=== PATIENT | female | born 1980 | race Caucasian/White ===

== ENCOUNTER 2017-07-27 07:44 | Day surgery (SDC) | payer BC, MEDICAID, OTHER ==
[2017-07-27] MEDS ORDERED: Propofol 200 MG/20 ML SDV ONE ×2 (08:21→09:15)
[2017-07-27] MEDS ORDERED: fentaNYL 100 MCG/2 ML SDV ONE (08:21)
[2017-07-27] MEDS ORDERED: Midazolam 1 MG/ML 2 ML SDV ONE (08:22)
[2017-07-27] MEDS ORDERED: Lactated Ringers 1,000 ML IV SCH (08:45)
[2017-07-27 10:45] VITALS: BP 110/66
--- NOTE | 2017-07-27 11:29 | OR ---
DATE OF PROCEDURE: 07/27/2017 PREOPERATIVE DIAGNOSES: 1. Family history of colon cancer in grandfather. 2. Blood in stool. POSTOPERATIVE DIAGNOSES: 1. Unremarkable colonoscopy. 2. Family history of colon cancer in grandfather. 3. Blood in stool. PROCEDURE: Colonoscopy to the cecum. ANESTHESIA: IV anesthesia with monitored anesthesia care. INDICATION: This 37-year-old white female is referred for a colonoscopy because of blood in her stool, and her grandfather had colon cancer. I counseled her for the procedure including risks and alternatives, and she gave her informed consent to proceed. DESCRIPTION OF PROCEDURE: The patient was placed in the left lateral decubitus position. IV anesthesia was administered by the Anesthesia Service. Time-out was held. A rectal exam was performed, which was unremarkable. The flexible video Olympus colonoscope was introduced through her anus, up her rectum, and out her colon, all the way to the cecum. Once the cecum was reached, the scope was slowly withdrawn, examining the mucosa throughout. No mucosal abnormalities were noted. No evidence of old or new blood was seen anywhere in the lower gastrointestinal tract. The scope was retroflexed in the rectum with the distal rectum appearing unremarkable. The scope was straightened and removed. She tolerated the procedure well. Raul Seth MD /[id number]
== END 2017-07-27 10:46 | disposition home or self-care (01) ==
LOC: JP.SDS 07:44
PROVIDERS: ATTEND Surgery
DX: K92.1 Melena (principal); J45.909 Unspecified asthma, uncomplicated; Z80.0 Family history of malignant neoplasm of digestive organs
CPT/HCPCS: 45378; 81025; J2250; J2704; J3010; J7120

== ENCOUNTER 2023-03-30 17:13 | Emergency (ER) | payer OTHER ==
[2023-03-30 17:23] VITALS: BP 146/68; PULSE 87
== END 2023-03-30 18:38 | disposition home or self-care (01) ==
LOC: JP.ED 17:13
DX: S63.502A Unspecified sprain of left wrist, initial encounter (principal)
CPT/HCPCS: 29125; 73110-26-LT; 73110-LT; 99282; 99283